=== PATIENT | male | born 1995 | race African-American/Black ===

== ENCOUNTER 2017-10-05 13:43 | Inpatient (IN) | payer BC ==
[2017-10-05 14:30] LABS: Urine Appearance Cloudy; Urine Blood Negative (Negative); Urine Color Yellow; Urine Ketones Negative (Negative); Urine Protein Negative (Negative); Urine Specific Gravity 1.023 (1.010-1.030); Urine Urobilinogen Negative (Negative)
[2017-10-05 14:34] LABS: ABS Basophils 0 10^3/ul (0-0.2); ABS Eosinophils 0 10^3/ul (0-0.6); ABS Lymphocytes 1.4 10^3/ul (1.0-4.8); ABS Monocytes 0.5 10^3/ul (0-0.8); ABS Neutrophils 5.1 10^3/ul (1.5-7.7); ABS Nucleated RBC 0 10^3/ul; Eosinophil % 0.7 % (0-6); Hematocrit 43 % (42-52); Hemoglobin 14.5 g/dl (14.0-18.0); Lymphocyte % 20.2 % (25-47); Mean Corpuscular HGB Conc 34 g/dl (31-36); Mean Corpuscular Hemoglobin 28 pg (27-31); Mean Corpuscular Volume 82 fL (80-94); Mean Platelet Volume 8.7 um3 (7.4-10.4); Nucleated Red Blood Cells % 0; Platelet Count 334 10^3/ul (150-450); Red Blood Count 5.22 10^6/ul (4.0-5.4); Red Cell Distribution Width 13 % (10.5-15); White Blood Count 7.2 10^3/ul (3.5-10.8)
[2017-10-05 14:40] LABS: EGFR Non-African American 105.5 (>60)
[2017-10-05] MEDS ORDERED: Acetaminophen TAB* 325 MG PO PRN (19:33)
[2017-10-05] MEDS ORDERED: Al Hydrox/Mg Hydrox/Simet LIQ* 30 ML UDC PO PRN (19:33)
[2017-10-06] MEDS: Vitamin THERAPEUTIC TAB PO SCH (08:26)
[2017-10-06] MEDS ORDERED: OLANzapine TAB* 5 MG PO ONE (14:05)
[2017-10-06] MEDS ORDERED: OLANzapine TAB* 5 MG ONE (14:09)
[2017-10-06] MEDS ORDERED: OLANzapine TAB* 5 MG PO SCH (21:00)
[2017-10-06] MEDS ORDERED: ARIPiprazole TAB* 5 MG PO SCH (21:00)
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
[2017-10-07] MEDS: Vitamin THERAPEUTIC TAB PO SCH (08:15)
--- NOTE | 2017-10-07 11:27 | PN ---
MHU: Group Therapy Note - Service Type Service Type: 42625 Group Psychotherapy - Cognitive Behavioral Group Therapy ( CBT):Patient was attentive and participatory in CBT programming this morning, and remained in good behavioral control. Patient expressed positive insights regarding relevant treatment interventions and goals.
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
--- NOTE | 2017-10-07 16:09 | PN ---
Subjective - Subjective Date of Service: 10/07/17 Service Type: [id number] Group Psychotherapy - Medication Education Group: Patient attended group and presented with flat affect that did not vary with discussion. Although responsive to direct prompts to respond to questions, patient did not engage in spontaneous conversation. Plan - Plan Treatment Plan: Name: NINA VILLA Birthdate: 1995 [id number] Medications: Current Medications Acetaminophen (Tylenol Tab*) 650 mg PO Q4H PRN PRN Reason: PAIN or TEMP > 101 F Al Hydrox/Mg Hydrox/Simethicone (Maalox Plus*) 30 ml PO Q4H PRN PRN Reason: INDIGESTION Multivitamins (Theragran Tab*) 1 tab PO DAILY [facility] Last Admin: 10/07/17 08:15 Dose: Not Given Olanzapine (Zyprexa Tab*) 10 mg PO BEDTIME K[facility]USHBOO
[2017-10-07] MEDS ORDERED: OLANzapine TAB* 10 MG PO SCH (21:00)
--- NOTE | 2017-10-07 21:07 | ED ---
Luiz Richmond Angela, scribed for Mehul Bay MD on 10/05/17 at 1404 . Psychiatric Complaint - HPI Summary HPI Summary: This pt is a 21 y/o male, accompanied by his mother, presenting to [facility] for paranoia. Mother reports the pt was diagnosed with schizophrenia at age 15. Pt was given Prozac for a while and was fine after this medication. Pt was taken off the medication and was stable with 2 jobs, per mother. Lately mother states the pt has been experiencing paranoid behavior and thoughts. Per mother, pt reports helicopters are following him and there is someone who poisoned him. Pt also thinks that the demons are after him and paces back and forth. Mother notes pt is not suicidal or homocidal. Mother states the pt has been showing all signs for schizophrenia and his mental state has changed completely. Mother reports "this is not my son." Pt is currently out on bail. Pt has never had any criminal record until he suddenly changed his mental status. No PMHx except for schizophrenia. - History Of Current Complaint Chief Complaint: EDMentalHealth Time Seen by Provider: 10/05/17 13:52 Hx Obtained From: Patient, Family/Pca - Mother Onset/Duration: Lasting Days, Still Present Timing: Days Character: Manic Aggravating Factor(s): Nothing Alleviating Factor(s): Nothing Associated Signs And Symptoms: Positive: Paranoid Behavior Related History: Positive For: Prior Psychiatric Issues - schizophrenia Has Suicidal: Denies: Thoughts, With A Plan Has Homicidal: Denies: Thoughts, With A Plan - Allergies/Home Medications Allergies/Adverse Reactions: Allergies Allergy/AdvReac Type Severity Reaction Status Date / Time No Known Allergies Allergy Verified 10/05/17 13:50 Home Medications: Home Medications NK [No Home Medications Reported] 10/05/17 [History Confirmed 10/05/17] PMH/Surg Hx/FS Hx/Imm Hx Endocrine/Hematology History: Denies: Hx Diabetes Cardiovascular History: Denies: Hx Hypertension Psychiatric History: Reports: Hx Schizophrenia Infectious Disease History: No Infectious Disease History: Denies: Traveled Outside the [place] in Last 30 Days - Family History Family History: maternal grandmother: schizophrenia - Social History Alcohol Use: None Substance Use Type: Reports: None Smoking Status (MU): Never Smoked Tobacco Review of Systems Negative: Fever Cardiovascular: Negative Respiratory: Negative Gastrointestinal: Negative Genitourinary: Negative Psychological: Other - paranoia Negative: Other - SI or HI All Other Systems Reviewed And Are Negative: Yes Physical Exam - Summary Physical Exam Summary: VITAL SIGNS: Reviewed. GENERAL: Patient is a well-developed and nourished male. Patient is not in any acute respiratory distress. HEAD AND FACE: No signs of trauma. No ecchymosis, hematomas or skull depressions. No sinus tenderness. EYES: PERRLA, EOMI x 2, No injected conjunctiva, no nystagmus. EARS: Hearing grossly intact. Ear canals and tympanic membranes are within normal limits. MOUTH: Oropharynx within normal limits. NECK: Supple, trachea is midline, no adenopathy, no JVD, no carotid bruit, no c- spine tenderness, neck with full ROM. CHEST: Symmetric, no tenderness at palpation LUNGS: Clear to auscultation bilaterally. No wheezing or crackles. CVS: Regular rate and rhythm, S1 and S2 present, no murmurs or gallops appreciated. ABDOMEN: Soft, non-tender. No signs of distention. No rebound no guarding, and no masses palpated. Bowel sounds are normal. EXTREMITIES: FROM in all major joints, no edema, no cyanosis or clubbing. NEURO: Alert and oriented x 3. No acute neurological deficits. Speech is normal and follows commands. SKIN: Dry and warm Triage Information Reviewed: Yes Vital Signs On Initial Exam: Initial Vitals Temp Pulse Resp BP Pulse Ox 98.5 F 102 16 135/92 100 10/05/17 13:47 10/05/17 13:47 10/05/17 13:47 10/05/17 13:47 10/05/17 13:47 Vital Signs Reviewed: Yes Diagnostics - Vital Signs Vital Signs Temp Pulse Resp BP Pulse Ox 10/05/17 13:47 98.5 F 102 16 135/92 100 - Laboratory Result Diagrams: 10/05/17 14:09 10/05/17 14:09 Lab Statement: Any lab studies that have been ordered have been reviewed, and results considered in the medical decision making process. Course/Dx - Course Assessment/Plan: pt is a 21 y/o male, accompanied by his mother, presenting to [facility] for paranoia. Mother reports the pt was diagnosed with schizophrenia at age 15. Pt was given Prozac for a while and was fine after this medication. Pt was taken off the medication and was stable with 2 jobs, per mother. Lately mother states the pt has been experiencing paranoid behavior and thoughts. Per mother, pt reports helicopters are following him and there is someone who poisoned him. Pt also thinks that the demons are after him and paces back and forth. Mother notes pt is not suicidal or homocidal. Test results without any significant abnormalities. Pt is medically cleared at 14:25. He is awaiting a mental health evaluation. Pt was evaluated by the mental health treating plant pumper and his case was reviewed by Dr. Cortes, psychiatrist. Dr. Cortes recommends admission to [facility] for the pt. Pt will be admitted to [facility], in stable condition, with a diagnosis of schizophrenia. - Differential Dx/Clinical Impression Provider Diagnosis: Schizophrenia Discharge - Sign-Out/Discharge Documenting (check all that apply): Discharge/Admit/Transfer - Admit to [facility] psych - Discharge Plan Condition: Stable Disposition: PSYCHIATRIC FACILITY-[facility] The documentation as recorded by the Luiz sandoval Angela accurately reflects the service I personally performed and the decisions made by me, Mehul Bay MD.
[2017-10-08] MEDS: Vitamin THERAPEUTIC TAB PO SCH (08:43)
--- NOTE | 2017-10-08 16:34 | PN ---
Subjective - Subjective Date of Service: 10/08/17 Service Type: [id number] Hosp care 15 min low complexity Assessment - Assessment Inpatient DSM-V Dx: F20.9 Clinical Impression: Alexsander is a 21-year-old Black man who has been charged with attempted murder related to his interpretation of a "poisoning" and feeling persecuted by an individual. Ty revealed that he sees and hears demons. He does not accept this as a diagnosis of psychosis, but rather as a zoroastrian-type persecution. nevertheless, he agrees to take Zyprexa which so far has been well-tolerated and effective. Plan - Plan Treatment Plan: Name: NINA VILLA Birthdate: 1995 [id number] Medications: Current Medications Acetaminophen (Tylenol Tab*) 650 mg PO Q4H PRN PRN Reason: PAIN or TEMP > 101 F Al Hydrox/Mg Hydrox/Simethicone (Maalox Plus*) 30 ml PO Q4H PRN PRN Reason: INDIGESTION Multivitamins (Theragran Tab*) 1 tab PO DAILY [facility] Last Admin: 10/08/17 08:43 Dose: 1 tab Olanzapine (Zyprexa Tab*) 15 mg PO BEDTIME KHUSHBOO - Discharge Plan Additional Comments: Alexsander will continue Zyprexa. We began at 5 mg, moved to 10 mg, and will continue to 15 mg for over the weekend. Alexsander's response to the medication has been positive and continuing the upward dosing is consistent with the severity of his illness.
--- NOTE | 2017-10-08 16:37 | PN ---
Subjective - Subjective Date of Service: 10/08/17 Service Type: 94205 Hosp care 15 min low complexity Subjective: Alexsander is in a good mood. He is happy and pleasant. He would like to go home as he is supported there and his family misses him, but he is willing to stay until it is clearer that medications are working and he is tolerating them well. At this point, he is not experiencing daytime sedation, but the increase in Zyprexa (olanzapine) could begin to cause that. It is important that he is in agreement with his medications as that may lead to more compliance. Objective - Appearance Appearance: Healthy Appearing Dysmorphic Features: No Hygiene: Normal Grooming: Well Kept - Behavior Psychomotor Activities: Normal Exhibits Abnormal Movement: No - Attitude and Relatedness Attitude and Relatedness: Well Related Eye Contact: Good - Speech Quality: Unpressured Latencies: Normal Quantity: Appropriate - Mood Patient's Decription of Mood: "Good" - Affect Observed Affect: Good Affect Consistent with: Euthymia - Thought Process Patient's Thought Process: Coherent Thought Content: No Passive Wish, No Suicidal Planning, No Homicidal Ideation, No Paranoid Ideation - Sensorium Experiencing Hallucinations: No, Sensorium is Clear Type of Hallucinations: Visual: No, Auditory: No, Command: No - Level of Consciousness Level of Consciousness: Alert Orientation: Yes Intact, Yes Orientated to Time, Yes Orientated to Place, Yes Orientated to Person - Impulse Control Impulse Control: Intact - Insight and Judgement Insight and Judgement: Fair - Group Participation Particating in Group Activities: Yes - Medication Management Medication Management Adherence: Yes - Additional Observations Comments: Alexsander appears happy and well. He is pleasant and rational in conversation. He shows a full range of affect and is not sad, tearful, or overwhelmed. He appears to be comfortable. Assessment - Assessment Merits Inpatient Hospitalization: For Immediate Safety Inpatient DSM-V Dx: F20.9 Clinical Impression: Alexsander is a 21-year-old Black man who has been charged with attempted murder related to his interpretation of a "poisoning" and feeling persecuted by an individual. He agrees to take Zyprexa which so far has been well-tolerated and effective. Alexsander's symptoms at this time are remitting. He no longer reports seeing hazy dark cloud-like images and has not reported hearing noise today. Plan - Plan Treatment Plan: Name: NINA VILLA Birthdate: 1995 [id number] Medications: Current Medications Acetaminophen (Tylenol Tab*) 650 mg PO Q4H PRN PRN Reason: PAIN or TEMP > 101 F Al Hydrox/Mg Hydrox/Simethicone (Maalox Plus*) 30 ml PO Q4H PRN PRN Reason: INDIGESTION Multivitamins (Theragran Tab*) 1 tab PO DAILY [facility] Last Admin: 10/08/17 08:43 Dose: 1 tab Olanzapine (Zyprexa Tab*) 15 mg PO BEDTIME KHUSHBOO - Discharge Plan Additional Comments: Ty will continue Zyprexa. We began at 5 mg, moved to 10 mg, and will continue to 15 mg for over the weekend. Ty's response to the medication has been positive and continuing the upward dosing is consistent with the severity of his illness. Keep dose at 15 mg through the weekend and encourage continued family contact.
[2017-10-08] MEDS: OLANzapine TAB* 5 MG PO SCH (20:23)
[2017-10-09] MEDS: Vitamin THERAPEUTIC TAB PO SCH (08:19)
[2017-10-09] MEDS: OLANzapine TAB* 5 MG PO SCH (20:43)
[2017-10-10] MEDS: Vitamin THERAPEUTIC TAB PO SCH (09:37)
--- NOTE | 2017-10-10 15:43 | PN ---
Subjective - Subjective Date of Service: 10/10/17 Subjective: Gregorio endorses doing well, he denies A/VH or SI/HI or side effects from prescribed Olanzapine. He does not offer any delusional content. He reports restful sleep. Objective - Appearance Appearance: Well Developed/Nourished Dysmorphic Features: No Hygiene: Normal Grooming: Well Kept - Behavior Psychomotor Activities: Normal Exhibits Abnormal Movement: No - Attitude and Relatedness Attitude and Relatedness: Guarded Eye Contact: Fair - Speech Quality: Unpressured Latencies: Normal Quantity: Terse - Mood Patient's Decription of Mood: "Good" - Affect Observed Affect: Unvariable Affect Consistent with: Euthymia - Thought Process Patient's Thought Process: Coherent, Impoverished Thought Content: No Passive Wish, No Suicidal Planning, No Homicidal Ideation, No Paranoid Ideation - Sensorium Experiencing Hallucinations: No, Sensorium is Clear - Level of Consciousness Level of Consciousness: Alert Orientation: Yes Intact - Impulse Control Impulse Control: Intact - Insight and Judgement Insight and Judgement: Poor - Group Participation Particating in Group Activities: Yes Assessment - Assessment Merits Inpatient Hospitalization: Cons[facility] Improvements, For Discharge Planning Inpatient DSM-V Dx: F20.9 Clinical Impression: Stabilizing in this structured setting with resolution of symptoms of concerns. He is tolerating trial of Olanzapine. Plan - Plan Treatment Plan: Name: NINA VILLA Birthdate: 1995 [id number] Medications: Current Medications Acetaminophen (Tylenol Tab*) 650 mg PO Q4H PRN PRN Reason: PAIN or TEMP > 101 F Al Hydrox/Mg Hydrox/Simethicone (Maalox Plus*) 30 ml PO Q4H PRN PRN Reason: INDIGESTION Multivitamins (Theragran Tab*) 1 tab PO DAILY [facility] Last Admin: 10/10/17 09:37 Dose: Not Given Olanzapine (Zyprexa Tab*) 15 mg PO BEDTIME [facility]US[facility]OO Last Admin: 10/09/17 20:43 Dose: 15 mg - Discharge Plan Discharge Plan: Outpatient Follow Up Outpatient Program: [facility]
[2017-10-10] MEDS: OLANzapine TAB* 5 MG PO SCH (20:14)
[2017-10-11 07:33] VITALS: BP 137/72
[2017-10-11] MEDS: Vitamin THERAPEUTIC TAB PO SCH (08:03)
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
== END 2017-10-11 13:05 | disposition home or self-care (01) | DRG 750 ==
LOC: ED 13:43 → BSU 18:20
PROVIDERS: ADMIT Psychiatry & Neurology Psychiatry; ATTEND Psychiatry & Neurology Psychiatry
DX: F20.9 Schizophrenia, unspecified (principal); Z81.8 Family history of other mental and behavioral disorders
CPT/HCPCS: 36415; 80053; 80061; 80307; 80320; 80329; 81003; 83036; 84443; 85025; 85660; 90853; 99222; 99231; 99232; 99285; A9270-GY; G0480